=== PATIENT | male | born 1985 | race Caucasian/White ===

== ENCOUNTER 2018-06-22 20:00 | Emergency (ER) | payer OTHER ==
[2018-06-22 20:37] VITALS: BP 118/63
--- NOTE | 2018-06-22 21:16 | UC ---
Back Pain HPI - HPI Summary HPI Summary: 33 y/o male presents to the urgent care c/o lower back pain radiating to both hips for the past 2 weeks. Pt reports he was getting into a cab and he bend to try to get something and went inside the cab fast and he felt the back pain, He though it was going to resolve w/ the day. However it has worsen, specially for the past 3 days. Pain is sharp, 6/10 w/ certain movements or when he walk for a long time. Pain is 2/10 at rest. He has taking Ibuprofen 400mg PO to alleviate symptoms. Last dose taken was at noon. Pt denies numbness or tingling sensation over lower legs, saddle anesthesia, urinary or fecal incontinence, urinary symptoms, SOB, flank pain, chest pain, abdominal pain, N/V/D. - History of Current Complaint Chief Complaint: UCBackPain Stated Complaint: BACK PAIN Time Seen by Provider: 06/22/18 21:08 Hx Obtained From: Patient Onset/Duration: Gradual Onset, Lasting Weeks - 2 weeks, Worse Since - 3 days Timing: Intermittent, Lasting Minutes Severity Initially: Mild Severity Currently: Moderate Pain Intensity: 6 - movement Pain Scale Used: 0-10 Numeric Back Pain: Is Discrete @ - lower back, Radiates To - b/L hips Character: Aching, Spasmodic Aggravating Factor(s): Movement, Lifting, Bending Alleviating Factor(s): Rest, OTC Meds, Other - laying down Associated Signs And Symptoms: Negative: Swelling, Redness, Weakness, Numbness, Abdominal Pain, Flank Pain, Bladder Incontinence, Bowel Incontinence, Pain with Weight Bearing - Risk Factors AAA Risk Factors: Negative TAD Risk Factors: Negative Cauda Equina Risk Factors: Negative Epidural Abscess Risk Factors: Negative - Allergies/Home Medications Allergies/Adverse Reactions: Allergies Allergy/AdvReac Type Severity Reaction Status Date / Time avoid narcotics Allergy See Comment Uncoded 06/22/18 20:32 Home Medications: Home Medications Acetaminophen TAB* [Tylenol TAB*] 975 mg PO Q6H PRN 06/22/18 [History Confirmed 06/22/18] PMH/Surg Hx/FS Hx/Imm Hx Previously Healthy: Yes Psychological History: Anxiety, Depression - Surgical History Surgical History: Yes Surgery Procedure, Year, and Place: right hand. bilateral eyes as a kid - Family History Family History: Stroke, bone cancer - Social History Occupation: Employed Part-time Lives: With Family Alcohol Use: None Substance Use Type: None Smoking Status (MU): Light Every Day Tobacco Smoker Type: eCigarettes Amount Used/How Often: vapes Review of Systems Constitutional: Negative Skin: Negative Eyes: Negative ENT: Negative Respiratory: Negative Cardiovascular: Negative Gastrointestinal: Negative Genitourinary: Negative Motor: Negative Neurovascular: Negative Musculoskeletal: Decreased ROM - lower back, Other: - lower back pain Neurological: Negative Psychological: Negative Is Patient Immunocompromised?: No All Other Systems Reviewed And Are Negative: Yes Physical Exam - Summary Physical Exam Summary: Vital Signs Reviewed: Yes Appearance: Well-Appearing, Well-Nourished,obese male sitting in the examining table w/o any apparent distress. Eyes: Positive: Conjunctiva Clear - PERRLA, EOMI. ENT: Positive: Normal ENT inspection, Hearing grossly normal, Pharynx normal, TMs normal, Uvula midline Neck: Positive: Supple, Nontender, No Lymphadenopathy Respiratory: Positive: Chest non-tender, Lungs clear, Normal breath sounds, No respiratory distress Cardiovascular: Positive: RRR, No Murmur, Pulses Normal, Brisk Capillary Refill Abdomen Description: Positive: Nontender, No Organomegaly, Soft. Negative: CVA Tenderness (R), CVA Tenderness (L) Bowel Sounds: Positive: Present Musculoskeletal: Positive: Strength Intact, BACK: Patient walked into the urgent care room with symmetric ambulation, No signs of limping, antalgic, able to bear weight. No signs of trauma, No masses palpated. Point tenderness at the level of L5-S1, B/L paraspinal muscle tenderness and spasm at the same level. No CVAT, no flank ecchymosis . No sacroiliac notch tenderness, No saddle anesthesia.FROM:w/ mild pain on lateral flexion, Straight Leg Raise: negative. Patellar reflexes: brisk, symmetric Muscle strength lower extremities. Dorsiflexion/ plantar flexion of ankles. Heel/ toe walk. Lower extremities: Femoral, popliteal, posterior tibial, and dorsalis pedis pulses WNL. Pt refuse rectal exam Neurological: Positive: Alert, Muscle Tone Normal Psychological Exam: Normal Skin Exam: Normal Triage Information Reviewed: Yes Vital Signs: Initial Vital Signs Temp 98.1 F 06/22/18 20:29 Pulse 94 06/22/18 20:29 Resp 20 06/22/18 20:29 BP 118/63 06/22/18 20:29 Pulse Ox 99 06/22/18 20:29 Back Pain Course/Dx - Course Course Of Treatment: 33 y/o male presents to the urgent care c/o lower back pain radiating to both hips for the past 2 weeks. Pt reports he was getting into a cab and he bend to try to get something and went inside the cab fast and he felt the back pain, He though it was going to resolve w/ the day. However it has worsen, specially for the past 3 days. Pain is sharp, 6/10 w/ certain movements or when he walk for a long time. Pain is 2/10 at rest. He has taking Ibuprofen 400mg PO to alleviate symptoms. Last dose taken was at noon. Pt denies numbness or tingling sensation over lower legs, saddle anesthesia, urinary or fecal incontinence, urinary symptoms, SOB, flank pain, chest pain, abdominal pain, N/V/D. Hx obtained. PE: Point tenderness at the level of the L5- S1 and B/L paraspinal muscle spasm and tenderness at the same level on examination. Pt Rx Ibuprofen PO and flexeril PO to alleviate symptoms. Patient was instructed to the f/u [facility] orthopedic from [facility] or his PCP in 1 week if symptoms do not improve or worsen. Patient understands and agrees. Patient is able to ambulate freely w/o aid or limp. Plan of care was discussed with the patient and patient understands and agrees. All questions were answered at patient satisfaction. Pt left clinic hemodynamically stable. - Differential Dx/Diagnosis Differential Diagnosis/HQI/PQRI: Compressive Cord Syndrome, Fracture, Herniated Disc, Renal Colic, Strain, Sprain Provider Diagnoses: 1- Acute lower back pain. 2- Back spasm Discharge - Sign-Out/Discharge Documenting (check all that apply): Patient Departure - D/C home All imaging exams completed and their final reports reviewed: No Studies - Discharge Plan Condition: Stable Disposition: HOME Prescriptions: Cyclobenzaprine TAB* [Flexeril 10 MG TAB*] 10 mg PO TID PRN #21 tab PRN Reason: Spasms - Back Ibuprofen TAB* [Motrin TAB* 800 MG] 800 mg PO Q6H PRN #30 tab PRN Reason: back pain Patient Education Materials: Low Back Strain (ED), Muscle Spasm (ED) Referrals: [facility] [place] [facility] [place]] - 2 Days [facility] [Provider Group] - 1 Week Additional Instructions: 1- Please take Ibuprofen PO q6-8hrs prn as directed after meals for pain. 2- Take Flexeril PO as directed for muscle spasm. Please do not drive while taking the medication. 3- Wear a back support. Avoid strenuous exercise of heavy lifting. 4- Please follow up with Orthopedic Dr from [facility] or your PCP in 1 week if not improvement of symptoms, for further management. - Billing Disposition and Condition Condition: STABLE Disposition: Home
[2018-06-22] MEDS ORDERED: Ibuprofen TAB* 400 MG PO ONE (21:47)
[2018-06-22] MEDS ORDERED: Cyclobenzaprine TAB* 10 MG PO ONE (21:48)
== END 2018-06-22 21:58 | disposition home or self-care (01) ==
LOC: UCCORT 20:00
DX: M54.5 Low back pain (principal); M62.830 Muscle spasm of back; Z88.5 Allergy status to narcotic agent; F17.210 Nicotine dependence, cigarettes, uncomplicated
CPT/HCPCS: 99212; A9270-GY; G0463

== ENCOUNTER 2018-07-01 15:27 | Emergency (ER) | payer OTHER ==
[2018-07-01 16:05] VITALS: BP 110/74
[2018-07-01] MEDS ORDERED: Amoxicillin PO (*) 500 MG CAP PO ONE (16:16)
[2018-07-01] MEDS ORDERED: Amoxicillin PO (*) 250 MG CAP PO ONE (16:16)
[2018-07-01] MEDS ORDERED: predniSONE TAB* 20 MG PO ONE (16:16)
--- NOTE | 2018-07-01 16:16 | UC ---
Throat Pain/Nasal Paul HPI - HPI Summary HPI Summary: 33 yo male with sore throat and swollen glands since this AM Son has strep no n/v/d no cp or sob - History of Current Complaint Stated Complaint: SORE THROAT,[place] Hx Obtained From: Patient Onset/Duration: Gradual Onset Severity: Severe Pain Intensity: 10 Pain Scale Used: 0-10 Numeric - Epiglottits Risk Factors Epiglottis Risk Factors: Negative - Allergies/Home Medications Allergies/Adverse Reactions: Allergies Allergy/AdvReac Type Severity Reaction Status Date / Time avoid narcotics Allergy See Comment Uncoded 07/01/18 15:58 PMH/Surg Hx/FS Hx/Imm Hx Previously Healthy: Yes - Surgical History Surgical History: Yes Surgery Procedure, Year, and Place: right hand. bilateral eyes as a kid - Family History Known Family History: Positive: Other - Mom s/p CVA, Dad with "bone cancer" Family History: Stroke, bone cancer - Social History Alcohol Use: None Substance Use Type: None Smoking Status (MU): Former Smoker Type: eCigarettes Amount Used/How Often: vapes Review of Systems Constitutional: Negative Skin: Negative Eyes: Negative ENT: Sore Throat Respiratory: Negative Cardiovascular: Negative Gastrointestinal: Negative Genitourinary: Negative Motor: Negative Neurovascular: Negative Musculoskeletal: Negative Neurological: Negative Psychological: Negative All Other Systems Reviewed And Are Negative: Yes Physical Exam Triage Information Reviewed: Yes Appearance: Well-Appearing, No Pain Distress, Well-Nourished Vital Signs: Initial Vital Signs Temp 97.7 F 07/01/18 15:59 Pulse 88 07/01/18 15:59 Resp 16 07/01/18 15:59 BP 110/74 07/01/18 15:59 Pulse Ox 100 07/01/18 15:59 Vital Signs Reviewed: Yes ENT: Positive: Hearing grossly normal, Pharyngeal erythema, TMs normal, Tonsillar swelling, Uvula midline. Negative: Nasal congestion, Nasal drainage, Tonsillar exudate, Trismus, Muffled voice, Hoarse voice, Dental tenderness, Sinus tenderness Dental Exam: Normal Neck: Positive: Supple, Nontender, Enlarged Nodes @ - R>L ant cerv Respiratory: Positive: Lungs clear, Normal breath sounds, No respiratory distress, No accessory muscle use Cardiovascular: Positive: RRR, No Murmur Musculoskeletal: Positive: ROM Intact, No Edema Neurological: Positive: Alert Psychological Exam: Normal Skin Exam: Normal Diagnostics - Laboratory Diagnostic Studies Completed/Ordered: strep:+ Throat Pain/Nasal Course/Dx - Differential Dx/Diagnosis Provider Diagnoses: strep throat Discharge - Sign-Out/Discharge Documenting (check all that apply): Patient Departure All imaging exams completed and their final reports reviewed: Yes - Discharge Plan Condition: Stable Disposition: HOME Referrals: No Primary Care Phys,NOPCP [Primary Care Provider] - - Billing Disposition and Condition Condition: STABLE Disposition: Home
== END 2018-07-01 16:30 | disposition home or self-care (01) ==
LOC: UCCORT 15:27
DX: J02.0 Streptococcal pharyngitis (principal); Z87.891 Personal history of nicotine dependence; Z88.5 Allergy status to narcotic agent
CPT/HCPCS: 87651; 99212; A9270-GY; G0463; J7512